=== PATIENT | female | born 1995 | race Asian ===

== ENCOUNTER 2020-10-22 09:48 | Emergency (ER) | payer BC ==
[~2020-10-22] VITALS: Ht 162.6 cm; Wt 78.0 kg
[2020-10-22 09:54] VITALS: Ht 162.6 cm; Wt 78.0 kg
[2020-10-22 10:37] LABS: BASOPHIL % 1.4 % (0.2-1.3); PLATELET COUNT 353 x10^3mcL (179-408)
[2020-10-22 10:44] LABS: RED CELL DISTRIBUTION WIDTH 14.6 % (12.3-17.7)
[2020-10-22 10:56] LABS: CALCIUM 8.5 mg/dL (8.5-10.1); CARBON DIOXIDE 23.5 mmol/L (21-32); CHLORIDE SERUM 105 mmol/L (98-107); CREATININE SERUM 0.6 mg/dL (0.6-1.0); GFR1 > 60 mL/min; GLUCOSE SERUM 96 mg/dL (74-106); POTASSIUM SERUM 3.6 mmol/L (3.5-5.1); SODIUM SERUM 140 mmol/L (136-145)
[2020-10-22 11:01] LABS: ALBUMIN 3.7 g/dL (3.4-5.0); ALKALINE PHOSPHATASE 88 U/L (46-116); ALT/SGPT 22 U/L (14-59); AST/SGOT 12 U/L (15-37); BILIRUBIN TOTAL 0.6 mg/dL (0.20-1.00); TOTAL PROTEIN, SERUM 7.3 g/dL (6.4-8.2)
[2020-10-22 12:01] VITALS: BP 107/62
== END 2020-10-22 12:01 | disposition home or self-care (01) ==
LOC: ED 09:48
PROVIDERS: Emergency Medicine
DX: R25.1 Tremor, unspecified (principal)